=== PATIENT | female | born 1950 | race Caucasian/White ===

== ENCOUNTER 2017-01-11 07:54 | Emergency (ER) | payer OTHER ==
[~2017-01-11] VITALS: Ht 165.1 cm; Wt 97.2 kg
[2017-01-11 09:01] LABS: HEMATOCRIT 43.3 % (36.0-46.0); MCH 31.5 PG (29.0-34.0); MCHC 33.9 G/DL (30.0-36.0); MCV 92.7 FL (83-99); MEAN PLAT.VOLUME 10.5 uM^3 (9.5-12.4); PLATELET COUNT 254 K/uL (156-360); RBC DIS.WIDTH-CV 12.4 % (11.8-14.6); RBC DIS.WIDTH-SD 42.4 % (39-53); RED BLOOD COUNT 4.67 M/uL (3.80-5.20); WHITE BLOOD COUNT 7.5 K/uL (4.1-10.2)
[2017-01-11 09:09] LABS: D-DIMER ELISA < 150.00 ng/mLDDU (<230)
[2017-01-11 09:12] LABS: CHLORIDE 105 mEq/L (99-109); POTASSIUM 3.8 mEq/L (3.7-5.4); SODIUM 140 mEq/L (136-147)
[2017-01-11 09:13] LABS: GLUCOSE 121 mg/dL (70-99)
[2017-01-11 09:15] LABS: ANION GAP 11 MEQ/L (2-14)
[2017-01-11 09:18] LABS: UREA NITROGEN (BUN) 10 mg/dL (9-23)
[2017-01-11 09:22] LABS: TROP-I INTERPRETATION NEGATIVE; TROPONIN-I < 0.01 ng/mL (0.0-0.30)
[2017-01-11 09:29] LABS: GFR ESTIMATE (CALCULATED) > 59 mL/min/
[2017-01-11 12:15] LABS: TROP-I INTERPRETATION NEGATIVE; TROPONIN-I < 0.01 ng/mL (0.0-0.30)
[2017-01-11] MEDS ORDERED: PROAIR RESPICL90 MCG IH (13:26)
[2017-01-11 13:53] VITALS: BP 111/68
== END 2017-01-11 14:01 | disposition home or self-care (01) ==
LOC: EME 07:54
PROVIDERS: Nurse Practitioner Family
DX: J06.9 Acute upper respiratory infection, unspecified (principal); R07.9 Chest pain, unspecified; J44.9 Chronic obstructive pulmonary disease, unspecified; Z86.718 Personal history of other venous thrombosis and embolism; Z86.711 Personal history of pulmonary embolism; Z87.891 Personal history of nicotine dependence
CPT/HCPCS: 71020; 80048; 84484; 85027; 85379; 93005; 99281; 99285